=== PATIENT | male | born 1965 | race Caucasian/White ===

== ENCOUNTER 2022-12-21 02:21 | Emergency (ER) | payer OTHER, SELFPAY ==
[2022-12-21] VITALS (7 sets, daily range): BP systolic 115–130; BP diastolic 72–81; PULSE 66–80; RESP 12–16; O2SAT 94–98; BMI 29.5
--- NOTE | 2022-12-21 02:55 | DI.RAD.S_ITS ---
PROCEDURE: XR CHEST 1V INDICATIONS: chest pain TECHNIQUE: One view of the chest was acquired. COMPARISON: None. FINDINGS: Surgical changes and devices: None. Lungs and pleura: Lungs are clear. No pleural effusions or pneumothorax. Mediastinum: Mediastinal contours appear normal. Heart size is normal. Bones and chest wall: No suspicious bony lesions. Overlying soft tissues appear unremarkable. IMPRESSION: No evidence acute pulmonary process. Comment: Final report is concordant with preliminary interpretation provided by [facility]. Dictated by: Reddy Ross M.D. on 12/21/2022 at 8:00 Approved by: Reddy Ross M.D. on 12/21/2022 at 8:01
[2022-12-21] MEDS: ASPIRIN 81 MG CHEW TAB 324 MG PO (03:06)
[2022-12-21 03:39] LABS: Add Manual Diff / Slide Review NO; Basophils Absolute Auto 0 /uL (0-100); Basophils Percent Auto 0.4 % (0-2); Eosinophils Absolute Auto 200 /uL (0-450); Eosinophils Percent Auto 3.1 % (2-4); Hematocrit 45.1 % (41-53); Hemoglobin 15.3 g/dL (13.5-17.5); Lymphocytes Absolute Auto 1800 /uL (1100-4500); Lymphocytes Percent Auto 24.6 % (25-40); Mean Corpuscular Hemoglobin 31.7 PG (26-34); Mean Corpuscular Volume 93.3 fL (80-100); Monocytes Absolute Auto 800 /uL (0-900); Monocytes Percent Auto 10.7 % (3-14); Neutrophils Absolute Auto 4500 /uL (1500-7000); Neutrophils Percent Auto 61.2 % (50-75); Platelet Count 204 X10^3/uL (150-400); Red Blood Cell Count 4.83 X10^6/uL (4.5-5.9); Red Cell Distribution Width 12.9 % (11.6-14.8); White Blood Cell Count 7.3 X10^3/uL (4.5-11.0)
[2022-12-21 03:40] LABS: Prothrombin Time 11.5 SECONDS (10.1-12.7)
[2022-12-21 03:42] LABS: PTT Partial Thromboplastin Tim 30 SECONDS (26-36)
[2022-12-21 03:45] LABS: Alanine Aminotransferase 30 IU/L (<50); Albumin Globulin Ratio 1.3 (1.0-2.8); Alkaline Phosphatase 72 U/L (38-126); Aspartate Aminotransferase 29 IU/L (17-59); BUN Creatinine Ratio 23.8 (6-22); Bilirubin Total 0.7 mg/dL (0.2-1.3); Blood Urea Nitrogen 20 mg/dL (9-20); Calcium 8.5 mg/dL (8.4-10.2); Carbon Dioxide 24 mmol/L (22-32); Chloride 104 mmol/L (98-107); Creatine Kinase 163 U/L (55-170); Estimated Glomerular Filt Rate > 60 mL/min (>60); Globulin 3.2 g/dL (1.7-4.1); Glucose 99 mg/dL (70-100); Potassium 3.9 mmol/L (3.4-5.1); Sodium 138 mmol/L (137-145); Total Protein 7.2 g/dL (6.3-8.2)
[2022-12-21 03:56] LABS: Troponin I < 0.012 ng/mL (0.01-0.034)
[2022-12-21 04:18] LABS: CKMB % Relative Index 1.1 % (1.5-5.0); HEMOLYSIS 26 (0-50)
--- NOTE | 2022-12-21 04:50 | ED_ITS ---
HPI - Chest Pain General Chief Complaint: Chest Pain Stated Complaint: chest pain, shoulder pain Time Seen by Provider: 12/21/22 02:39 Source: patient Mode of arrival: Ambulatory Limitations: no limitations History of Present Illness HPI narrative: Otherwise healthy 57-year-old gentleman with no significant medical history takes no prescription medications today for a.m. notice that he was having left- sided chest pain radiating up to the left shoulder worse with deep breathing not reproducible with palpation and not exacerbated with physical activity. Not associated with nausea, vomiting, diaphoresis, dyspnea, cough. He describes no recent upper respiratory infections. He is not recently had abdominal pain constipation or diarrhea. He has never had similar findings. He does not smoke and does not have a strong family history for heart disease. Related Data Allergies Allergy/AdvReac Type Severity Reaction Status Date / Time codeine [CODEINE] AdvReac Unknown Verified 12/21/22 05:06 Review of Systems Review of Systems Narrative: Remainder of complete review of systems is otherwise unremarkable except for that included in the HPI. Patient History Social History Smoking Status: Former smoker Smoking Status: Former smoker alcohol intake frequency: a few times a month Substance Use Type: does not use Exam Initial Vital Signs Initial Vital Signs: Vital Signs Pulse Rate 80 12/21/22 03:43 Respiratory Rate 14 12/21/22 03:43 Blood Pressure 128/80 12/21/22 03:43 Pulse Oximetry 97 12/21/22 03:43 Oxygen Delivery Method 12/21/22 03:43 General: Healthy appearing, in no acute distress. Able to give a complete and coherent history. Well-nourished well-developed HEENT: Moist mucous membranes, normal sclera with reactive pupils, Neck: No JVD, supple Respiratory: Lungs are clear to auscultation, no wheezing no rales no rhonchi. Full and symmetrical air movement Cardiac: Regular rate and rhythm no murmurs no bruits Abdomen: Soft, nontender, good bowel tones, no flank pain Skin: Warm and dry, no rashes Neurologic: Grossly neurologically intact with no obvious asymmetries or abnormalities Extremities: No trauma, well perfused Psych: Cooperative, appropriate insight and affect Course Orders Ordered: ED Orders 12/21/22 EKG-12 Lead Routine 12/21/22 02:40 Complete Blood Count AUTO DIFF Stat Comprehensive Metabolic Panel Stat Partial Thromboplastin Time Stat Prothrombin Time INR Stat Troponin & CK Cardiac Panel Stat 12/21/22 02:55 XR chest 1V Stat EKG-12 Lead Stat 12/21/22 04:45 Trop I [Troponin I] Stat Discontinued Medications Aspirin (Aspirin 81 Mg Chew Tab) 324 mg PO NOW ONE Stop: 12/21/22 02:56 Last Admin: 12/21/22 03:06 Dose: 324 mg Documented By: AP Ketorolac Tromethamine (Ketorolac 30 Mg/Ml Vial) 15 mg IV NOW ONE Stop: 12/21/22 04:59 Last Admin: 12/21/22 05:04 Dose: 15 mg Documented By: CORINA Vital Signs Vital signs: Vital Signs - 8 hr 12/21/22 03:43 12/21/22 03:45 12/21/22 04:00 Pulse Rate 80 69 67 Respiratory Rate 14 14 15 Blood Pressure 128/80 Pulse Oximetry 97 94 94 Oxygen Delivery Method Room Air 12/21/22 04:02 12/21/22 04:02 12/21/22 04:30 Pulse Rate 73 Respiratory Rate 13 Blood Pressure 130/72 122/78 Pulse Oximetry 96 Oxygen Delivery Method 12/21/22 04:30 12/21/22 05:00 12/21/22 05:00 Pulse Rate 66 67 Respiratory Rate 12 14 Blood Pressure 115/81 Pulse Oximetry 95 96 Oxygen Delivery Method MDM - Chest Pain Lab Data 12/21/22 02:40 12/21/22 02:40 Labs: Lab Results 12/21/22 12/21/22 12/21/22 Range/Units 02:40 02:40 02:40 WBC 7.3 (4.5-11.0) X10^3/uL RBC 4.83 (4.5-5.9) X10^6/uL Hgb 15.3 (13.5-17.5) g/dL Hct 45.1 (41-53) % MCV 93.3 (80-100) fL MCH 31.7 (26-34) PG MCHC 34.0 (30-36) % RDW 12.9 (11.6-14.8) % Plt Count 204 (150-400) X10^3/uL Neut % (Auto) 61.2 (50-75) % Lymph % (Auto) 24.6 L (25-40) % [place] % (Auto) 10.7 (3-14) % Eos % (Auto) 3.1 (2-4) % Baso % (Auto) 0.4 (0-2) % Neut # (Auto) 4500 (2116-4526) /uL Lymph # (Auto) 1800 (1992-5864) /uL [place] # (Auto) 800 (0-900) /uL Eos # (Auto) 200 (0-450) /uL Baso # (Auto) 0 (0-100) /uL PT 11.5 (10.1-12.7) SECONDS INR 1.0 (0.9-1.3) APTT 30 (26-36) SECONDS Sodium 138 (137-145) mmol/L Potassium 3.9 (3.4-5.1) mmol/L Chloride 104 (98-107) mmol/L Carbon Dioxide 24 (22-32) mmol/L BUN 20 (9-20) mg/dL Creatinine 0.84 (0.66-1.25) mg/dL Estimated GFR > 60 (>60) mL/min BUN/Creatinine Ratio 23.8 H (6-22) Glucose 99 (70-100) mg/dL Calcium 8.5 (8.4-10.2) mg/dL Total Bilirubin 0.7 (0.2-1.3) mg/dL AST 29 (17-59) IU/L ALT 30 (<50) IU/L Alkaline Phosphatase 72 (38-126) U/L Total Creatine Kinase 163 (55-170) U/L CK-MB (CK-2) 1.80 (<2.37) ng/mL CK-MB (CK-2) Rel Index 1.1 L (1.5-5.0) % Troponin I < 0.012 (0.01-0.034) ng/mL Total Protein 7.2 (6.3-8.2) g/dL Albumin 4.0 (3.5-5.0) g/dL Globulin 3.2 (1.7-4.1) g/dL Albumin/Globulin Ratio 1.3 (1.0-2.8) 12/21/22 Range/Units 04:45 WBC (4.5-11.0) X10^3/uL RBC (4.5-5.9) X10^6/uL Hgb (13.5-17.5) g/dL Hct (41-53) % MCV (80-100) fL MCH (26-34) PG MCHC (30-36) % RDW (11.6-14.8) % Plt Count (150-400) X10^3/uL Neut % (Auto) (50-75) % Lymph % (Auto) (25-40) % [place] % (Auto) (3-14) % Eos % (Auto) (2-4) % Baso % (Auto) (0-2) % Neut # (Auto) (9713-6873) /uL Lymph # (Auto) (9119-9769) /uL [place] # (Auto) (0-900) /uL Eos # (Auto) (0-450) /uL Baso # (Auto) (0-100) /uL PT (10.1-12.7) SECONDS INR (0.9-1.3) APTT (26-36) SECONDS Sodium (137-145) mmol/L Potassium (3.4-5.1) mmol/L Chloride (98-107) mmol/L Carbon Dioxide (22-32) mmol/L BUN (9-20) mg/dL Creatinine (0.66-1.25) mg/dL Estimated GFR (>60) mL/min BUN/Creatinine Ratio (6-22) Glucose (70-100) mg/dL Calcium (8.4-10.2) mg/dL Total Bilirubin (0.2-1.3) mg/dL AST (17-59) IU/L ALT (<50) IU/L Alkaline Phosphatase (38-126) U/L Total Creatine Kinase (55-170) U/L CK-MB (CK-2) (<2.37) ng/mL CK-MB (CK-2) Rel Index (1.5-5.0) % Troponin I < 0.012 (0.01-0.034) ng/mL Total Protein (6.3-8.2) g/dL Albumin (3.5-5.0) g/dL Globulin (1.7-4.1) g/dL Albumin/Globulin Ratio (1.0-2.8) Imaging Data Chest x-ray: Radiologist's Impression: No acute pulmonary disease ECG Data Interpretation: Sinus rhythm at a rate of 81 Normal intervals, normal axis No acute ischemic changes MDM Narrative Medical decision making narrative: CC: Left-sided chest pain worse with inspiration: Acute complaint, new diagnosis uncertain prognosis Complicating co-morbidities: 57-year-old male Corroborating data: Data collected from: patient, Differential considered: Pleurisy, pneumothorax, acute coronary syndrome, dissection, musculoskeletal pain, pneumonia, viral syndrome, Exam documented above, pertinent findings include: Completely benign exam Lab Test results independently reviewed as above. Pertinent findings: CBC is unremarkable Chemistries are unremarkable Troponin x2 are negative Independently reviewed EKG as above Imaging studies independently reviewed: Chest x-ray shows no acute findings Treatments: Initially given aspirin. After initial troponin returns negative he is given IV Toradol to see if this might help with the pleuritic component of his pain. Re-evaluations: Feeling somewhat better after Toradol Discussion: Acute left-sided chest pain with negative troponin. Significant pleuritic fracture. No evidence of acute coronary syndrome. Lab workup is reassuring. I do not suspect a cardiac etiology at this time. Will continue to treat for pleuritic type pain and ask him to return should symptoms worsen he is safe for discharge home Disposition: see below, along with detailed discharge instructions that have been reviewed with patient as well as indications for ED re-evaluation and additional outpatient follow up Discharge Plan Departure Patient Disposition: Home Clinical Impression: Acute pleurisy without pleural effusion Instructions: DI for Pleurisy Activity Restrictions/Additional Instructions: Thank you for coming in today I think it was completely appropriate come to the emergency room with acute left-sided chest pain. Your workup was very reassuring. There is no evidence of heart attack or heart attack like syndrome, no pneumonia, no collapsed lung, I suspect that you have a component of pleurisy, this is inflammation around lining of the lung. This can cause the pain that you are experiencing and is typically worse with deep breathing. Using 400 mg of ibuprofen (2 [id number] pills) and 1 Tylenol every 6 hours can be very helpful in controlling pain. If you find that symptoms worsen or you develop new findings, would be very appropriate to return to the emergency department Stand Alone Forms: Patient Portal/API
[2022-12-21] MEDS: KETOROLAC 30 MG/ML VIAL 15 MG IV (05:04)
[2022-12-21 05:14] LABS: Troponin I < 0.012 ng/mL (0.01-0.034)
== END 2022-12-21 05:59 | disposition home or self-care (01) ==
PROVIDERS: Emergency Provider Emergency Medicine
DX: R09.1 Pleurisy (principal)
CPT/HCPCS: 36415; 71045; 80053; 82550; 82553; 84484; 85025; 85610; 85730; 93005; 96374; 99284; J1885

== ENCOUNTER → 2025-09-12 11:35 | Outpatient (CLI) | payer OTHER, SELFPAY ==
--- NOTE | 2025-09-12 11:37 | DI.RAD.S_ITS ---
PROCEDURE: XR SHOULDER RT MIN 2V INDICATIONS: chronic shoulder pain TECHNIQUE: 3 views of the shoulder were acquired. COMPARISON: None. FINDINGS: Bones: No fractures or dislocations. At least moderate glenohumeral joint degeneration with large inferior osteophyte off the humeral head. Moderate acromioclavicular joint degeneration. No suspicious bony lesions. Visualized ribs appear intact. Soft tissues: No suspicious soft tissue calcifications. IMPRESSION: Moderate degenerative changes of the shoulder. No acute osseous abnormalities. Dictated by: Landon Reno M.D. on 09/12/2025 at 13:49 Approved by: Landon Reno M.D. on 09/12/2025 at 13:50
--- NOTE | 2025-09-12 11:37 | DI.RAD.S_ITS ---
PROCEDURE: XR SHOULDER LT MIN 2V INDICATIONS: chronic shoulder pain TECHNIQUE: 3 views of the shoulder were acquired. COMPARISON: None. FINDINGS: Bones: No fractures or dislocations. Mild acromioclavicular joint degeneration. No suspicious bony lesions. Visualized ribs appear intact. Soft tissues: No suspicious soft tissue calcifications. IMPRESSION: No acute osseous abnormalities. Mild acromioclavicular joint degeneration. Dictated by: Landon Reno M.D. on 09/12/2025 at 13:49 Approved by: Landon Reno M.D. on 09/12/2025 at 13:49
[2025-09-12 12:53] LABS: Hematocrit 46.8 % (41-53); Hemoglobin 16.1 g/dL (13.5-17.5); Mean Corpuscular HGB Conc 34.4 % (30-36); Mean Corpuscular Hemoglobin 32.3 PG (26-34); Mean Corpuscular Volume 93.8 fL (80-100); Platelet Count 203 X10^3/uL (150-400)
[2025-09-12 13:03] LABS: Hemoglobin A1C% w Est Avg Glu 5.2 % (4.0-6.0)
[2025-09-12 13:09] LABS: Cholesterol 236 mg/dL (140-199); HDL Cholesterol 62 mg/dL (40-60); Triglycerides 190 mg/dL (35-150)
== END ==
PROVIDERS: PCP Family Medicine; Referring Provider Family Medicine; Visit Provider Family Medicine
DX: Z12.5 Encounter for screening for malignant neoplasm of prostate (principal); M25.511 Pain in right shoulder; M25.512 Pain in left shoulder; G89.29 Other chronic pain; E78.5 Hyperlipidemia, unspecified; M19.012 Primary osteoarthritis, left shoulder; M19.011 Primary osteoarthritis, right shoulder
CPT/HCPCS: 36415; 73030; 80061; 83036; 85027; G0103

== ENCOUNTER → 2025-09-18 12:05 | Outpatient (CLI) | payer OTHER, SELFPAY | PROVIDERS: PCP Family Medicine; Referring Provider Family Medicine; Visit Provider Family Medicine | DX: Z12.11 Encounter for screening for malignant neoplasm of colon (principal) | CPT/HCPCS: 82274 ==